=== PATIENT | male | born 1955 | race Caucasian/White ===

== ENCOUNTER → 2019-04-05 08:36 | Outpatient (CLI) | payer OTHER, SELFPAY ==
--- NOTE | 2019-04-05 | DI.ECHO.S_ITS ---
[facility]---------+ [facility] +---------+ : : [address] : [address] : : : : [id number] : : : : Phone: [phone]+ Echocardiogram Report + + :Name: JAM MANRIQUEZ Study Date: 04/05/2019 Height: 70 in : :[facility] Weight: 199 lb : : Gender: Male BSA: 2.1 m2 : :: 1955 Age: 64 yrs BP: 142/70 mmHg: :Reason For Study: Hypertension : :Ordering Physician: Td : :Carolyn Hubbard Performed By: Janeth Noland : + + Interpretation Summary The left ventricle is normal in size. The ejection fraction is estimated to be 55-60%. There are no focal wall motion abnormalities. Diastolic parameters suggest a relaxation abnormality of the left ventricle, consistent with probable normal filling pressures. The right ventricle is normal in size and function. Right ventricular systolic pressure is estimated to be 16 mmHg plus the clinically estimated CVP which cannot be estimated on this exam. Both atria are normal in size. There is no significant valvular heart disease. The aortic root is mildly dilated. The ascending aorta is mildly enlarged. Procedure: A two-dimensional transthoracic echocardiogram with color flow and Doppler was performed. The study quality was technically adequate. There is no prior echocardiogram noted for this patient. Left Ventricle: The left ventricle is normal in size. There is normal left ventricular wall thickness. There is no ventricular septal defect visualized. The ejection fraction is estimated to be 55-60%. There are no focal wall motion abnormalities. Diastolic parameters suggest a relaxation abnormality of the left ventricle, consistent with probable normal filling pressures. Right Ventricle: The right ventricle is normal in size and function. Atria: Both atria are normal in size. There is no Doppler evidence for an interatrial shunt. Mitral Valve: The mitral valve is normal in structure and function. There is trace mitral regurgitation. Aortic Valve: The aortic valve is trileaflet. The aortic valve opens well. No aortic regurgitation is present. Tricuspid Valve: The tricuspid valve is normal in structure and function. There is a trace or physiologic amount of tricuspid regurgitation. Right ventricular systolic pressure is estimated to be 16 mmHg plus the clinically estimated CVP which cannot be estimated on this exam. Pulmonic Valve: The pulmonic valve is not well seen, but is grossly normal. There is a trace or physiologic amount of pulmonic regurgitation. There is no significant valvular heart disease. Great Vessels: The aortic root is mildly dilated. The ascending aorta is mildly enlarged. The aortic arch is normal in size. The pulmonary artery is normal size. The inferior vena cava was not well visualized. Pericardium/ Pleura There is no pericardial effusion. MMode/2D Measurements & Calculations LVIDd: 4.9 cm LVOT diam: 2.3 cm LVIDs: 3.4 cm Ao root diam: 4.2 cm FS: 29.6 % Aortic Jxn: 3.1 cm EPSS: 0.78 cm asc Aorta Diam: 3.9 cm IVSd: 1.2 cm Ao Arch Diam (Prox Trans): 2.6 cm LVPWd: 0.94 cm LV stubbs. diameter/BSA (cm/m^2): 2.3 LV sys. diameter/BSA (cm/m^2): 1.6 LA A2 area: 16.1 cm2 RA long axis: 5.5 cm LA A4 area: 15.7 cm2 RA area: 14.8 cm2 LA length (vol): 4.6 cm RA vol: 34.0 ml LA vol: 46.6 ml RA : 16.3 ml/m2 LA vol index: 22.4 ml/m2 RVD1 (basal): 3.9 cm RVD2 (mid): 2.9 cm TAPSE: 2.2 cm Doppler Measurements & Calculations Ao V2 max: 105.9 cm/sec LVOT Max Ish: 58.3 cm/sec Ao V2 mean: 73.8 cm/sec LV V1 max P.4 mmHg Ao max P.5 mmHg LV V1 VTI: 12.6 cm Ao mean P.4 mmHg ANA(I,D): 2.5 cm2 Ao V2 VTI: 22.1 cm ANA(V,D): 2.4 cm2 sev ratio: 0.57 ANA indexed to BSA (cm^2/m^2): 1.2 MV E max ish: 63.5 cm/sec TR max ish: 200.2 cm/sec MV A max ish: 77.2 cm/sec TR max P.0 mmHg MV E/A: 0.82 PA V2 max: 71.9 cm/sec Med Peak E' Ish: 5.8 cm/sec PA V2 mean: 48.4 cm/sec E/E' med: 11.0 PA mean P.1 mmHg Lat Peak E' Ish: 6.4 cm/sec PA Accel Time: 0.12 sec E/E' lat: 9.9 E/e' average: 10.4 MV dec time: 0.23 sec MV P1/2t: 70.1 msec MV P1/2t max ish: 63.6 cm/sec SV(LVOT): 54.6 ml MVA(P12t): 3.1 cm2 Reading Physician:12:51 PM
== END ==
PROVIDERS: Visit Provider Internal Medicine Cardiovascular Disease
DX: I10 Essential (primary) hypertension (principal); I77.89 Other specified disorders of arteries and arterioles
CPT/HCPCS: 93306